=== PATIENT | male | born 1990 | race American Indian/Alaskan Native ===

== ENCOUNTER 2020-04-21 10:49 | Emergency (ER) | payer MEDICAID ==
[~2020-04-21] VITALS: Ht 172.7 cm; Wt 102.1 kg
[2020-04-21 10:59] VITALS: Ht 172.7 cm; Wt 102.1 kg
[2020-04-21 12:48] VITALS: BP 120/68
== END 2020-04-21 12:49 | disposition home or self-care (01) ==
LOC: ED 10:49
DX: S62.303A Unspecified fracture of third metacarpal bone, left hand, initial encounter for closed fracture (principal); S62.305A Unspecified fracture of fourth metacarpal bone, left hand, initial encounter for closed fracture; F17.210 Nicotine dependence, cigarettes, uncomplicated; X58.XXXA Exposure to other specified factors, initial encounter; Y93.89 Activity, other specified; Y92.89 Other specified places as the place of occurrence of the external cause; Y99.8 Other external cause status
CPT/HCPCS: 90715; Q0092

== ENCOUNTER 2020-07-22 13:48 | Emergency (ER) | payer MEDICAID ==
[~2020-07-22] VITALS: Ht 170.2 cm; Wt 101.2 kg
[2020-07-22 13:50] VITALS: Ht 170.2 cm; Wt 101.2 kg
[2020-07-22 14:28] LABS: BASOPHIL % 0.7 % (0-2); PLATELET COUNT 165 x10^3mcL (130-400); RED CELL DISTRIBUTION WIDTH 13.7 % (11.5-14.5)
[2020-07-22 15:24] LABS: ALKALINE PHOSPHATASE 101 U/L (46-116); ALT/SGPT 40 U/L (16-63); AST/SGOT 18 U/L (15-37); BILIRUBIN TOTAL 0.27 mg/dL (0.20-1.00); CALCIUM 8.2 mg/dL (8.5-10.1); CARBON DIOXIDE 24.2 mmol/L (21-32); CHLORIDE SERUM 108 mmol/L (98-107); CREATININE SERUM 1.2 mg/dL (0.7-1.3); GFR1 > 60 mL/min; GLUCOSE SERUM 105 mg/dL (74-106); SODIUM SERUM 144 mmol/L (136-145); TOTAL PROTEIN, SERUM 7.3 g/dL (6.4-8.2)
[2020-07-22 15:28] LABS: ALBUMIN 3.3 g/dL (3.4-5.0)
[2020-07-22 15:30] VITALS: BP 94/52
[2020-07-22 16:07] LABS: CHOLESTEROL/HDL RATIO 2.8
== END 2020-07-22 15:50 | disposition left against medical advice (07) ==
LOC: ED 13:48
PROVIDERS: Emergency Medicine; Family Medicine
DX: S41.112A Laceration without foreign body of left upper arm, initial encounter (principal); R55 Syncope and collapse; I95.9 Hypotension, unspecified; F15.10 Other stimulant abuse, uncomplicated; W22.8XXA Striking against or struck by other objects, initial encounter; Y93.89 Activity, other specified; Y92.89 Other specified places as the place of occurrence of the external cause; Y99.8 Other external cause status
CPT/HCPCS: 83880; J0690; J2001

== ENCOUNTER 2020-07-28 16:27 | Emergency (ER) | payer MEDICAID ==
[~2020-07-28] VITALS: Ht 170.2 cm; Wt 104.8 kg
[2020-07-28 16:51] VITALS: Ht 170.2 cm; Wt 104.8 kg
[2020-07-28 18:10] VITALS: BP 130/71
== END 2020-07-28 18:10 | disposition home or self-care (01) ==
LOC: ED 16:27
DX: S41.111D Laceration without foreign body of right upper arm, subsequent encounter (principal); F15.10 Other stimulant abuse, uncomplicated; X58.XXXD Exposure to other specified factors, subsequent encounter

== ENCOUNTER 2020-10-23 14:32 | Emergency (ER) | payer OTHER ==
[~2020-10-23] VITALS: Ht 170.2 cm; Wt 104.8 kg
[2020-10-23 15:04] VITALS: BP 1358/98; Ht 170.2 cm; Wt 104.8 kg
== END 2020-10-23 16:42 | disposition left against medical advice (07) ==
LOC: ED 14:32
DX: R60.0 Localized edema (principal)